=== PATIENT | female | born 1985 | race Caucasian/White ===

== ENCOUNTER → 2019-07-10 | Outpatient (CLI) | payer SELFPAY ==
--- NOTE | 2019-07-10 10:48 | RADIOLOGY REPORT (SQ) ---
EXAM DESCRIPTION: VENOUS UNILATERAL LOWER COMPLETED DATE/TIME: 07/10/2019 10:04 am REASON FOR STUDY: LLE PAIN M25.572 PAIN IN LEFT ANKLE AND JOINTS OF LEFT FOOT COMPARISON: None. TECHNIQUE: Dynamic and static hendrickson scale and color images acquired of the left leg venous system. Se lected spectral images acquired with additional compression and augmentation maneuvers. The contralat eral common femoral vein and saphenofemoral junction were also imaged. Images stored on PACS. LIMITATIONS: Limited evaluation due to body habitus. FINDINGS: COMMON FEMORAL: Normal phasicity, compression and augmentation. No visualized echogenic ma terial on hendrickson scale. No defects on color images. FEMORAL: Normal compression and augmentation. No visualized echogenic material on hendrickson scale. No defe cts on color images. POPLITEAL: Normal compression, augmentation. No visualized echogenic material on hendrickson scale. No defec ts on color images. CALF VESSELS: Normal compression, augmentation. No visualized echogenic material on hendrickson scale. No de fects on color images. GSV and SSV: Normal compression, augmentation. No visualized echogenic material on hendrickson scale. No def ects on color images. ANY DEEP VENOUS INSUFFICIENCY: Not evaluated. ANY EVIDENCE OF POPLITEAL CYST: No. OTHER: No other significant finding. CONTRALATERAL COMMON FEMORAL VEIN AND SAPHENOFEMORAL JUNCTION: Normal phasicity, compression and augmentation. No visualized echogenic material on hendrickson scale. No de fects on color images. IMPRESSION: No evidence of DVT or SVT in the left leg. TECHNICAL DOCUMENTATION: JOB ID: [id number] [place]- All Rights Reserved Reading location - IP/workstation name: [email or web address]
== END ==
LOC: SP 08:40
PROVIDERS: ATTEND Orthopaedic Surgery Sports Medicine
DX: M25.572 Pain in left ankle and joints of left foot (principal); R60.9 Edema, unspecified
CPT/HCPCS: 93971